=== PATIENT | female | born 1965 | race Caucasian/White ===

== ENCOUNTER → 2024-08-26 | Outpatient (CLI) | payer OTHER, SELFPAY ==
--- NOTE | 2024-08-26 09:56 | XR_ITS ---
EXAMINATION: Ankle, right 3 views . Technique: Ankle AP, oblique, lateral 3 views Date and time of exam: August 26, 2024 1003 hours INDICATIONS: Patient fell yesterday with injury to the ankle, ankle pain. FINDINGS: Moderate osteopenia Lateral malleolar soft tissue swelling No acute fracture IMPRESSION: No fracture or ankle dislocation
--- NOTE | 2024-08-26 09:56 | XR_ITS ---
Examination: Knee, right , 3 views Technique: Knee AP, lateral, oblique 3 views Date and time of exam: August 26, 2024 1003 hours INDICATIONS: Patient fell yesterday with injury to the knee, knee pain. FINDINGS: Mild narrowing medial joint space Rounded old ossification in the soft tissue medial to the proximal tibia No acute fracture Small knee effusion IMPRESSION: No acute fracture Small knee effusion
--- NOTE | 2024-08-26 09:56 | XR_ITS ---
Examination: Foot, right, 3 views Technique: AP, oblique, lateral views foot, 3 views Date and time of exam: August 26, 2024 1003 hours INDICATIONS: Patient fell yesterday with injury to the foot, foot pain. FINDINGS: No acute fracture. No dislocation No foreign body Small plantar posterior bony calcaneal spurs Minor ossification in the plantar fascia Mild narrowing first metatarsophalangeal joint IMPRESSION: Small plantar posterior bony calcaneal spurs Minor ossification in the plantar fascia Small plantar posterior bony calcaneal spurs
== END | disposition home or self-care (01) ==
LOC: CDIM 09:48
PROVIDERS: PCP Physician Assistant; Referring Provider Physician Assistant; Visit Provider Physician Assistant
DX: S83.91XA Sprain of unspecified site of right knee, initial encounter (principal); S90.921A Unspecified superficial injury of right foot, initial encounter; S99.911A Unspecified injury of right ankle, initial encounter; W19.XXXA Unspecified fall, initial encounter; M77.31 Calcaneal spur, right foot; M25.871 Other specified joint disorders, right ankle and foot; M25.461 Effusion, right knee
CPT/HCPCS: 73562; 73610; 73630

== ENCOUNTER → 2024-12-01 | Outpatient (CLI) | payer BC, SELFPAY ==
--- NOTE | 2024-12-01 13:47 | XR_ITS ---
Examination: Lumbar spine, 5 views Technique: Lumbar spine AP, lateral, coned lateral lower lumbar spine, bilateral obliques 5 views Exam date and time: December 01, 2024 1352 hours INDICATIONS: Low back pain post injury 3 days ago. FINDINGS: Lumbar levoscoliosis 6 degrees Mild diffuse facet arthropathy No lumbar fracture. Mild disc narrowing L1-L2 Mild lumbar spondylosis IMPRESSION: No lumbar fracture
== END | disposition home or self-care (01) ==
PROVIDERS: PCP Registered Nurse; Referring Provider Internal Medicine; Visit Provider Internal Medicine
DX: S39.92XA Unspecified injury of lower back, initial encounter (principal); X58.XXXA Exposure to other specified factors, initial encounter
CPT/HCPCS: 72110